=== PATIENT | male | born 1960 | race Caucasian/White ===

== ENCOUNTER → 2018-07-07 | Outpatient (CLI) | payer OTHER ==
[~2018-07-07] MED LIST: ASPI325 PO; METO100ER PO
[2018-07-08 13:56] LABS: Stool Occult Bld Immuno 1 Positive (NEGATIVE)
== END | disposition home or self-care (01) ==
LOC: LAB SHORT 13:16 → LAB EV 13:16
PROVIDERS: Internal Medicine
DX: Z12.11 Encounter for screening for malignant neoplasm of colon (principal); Z12.5 Encounter for screening for malignant neoplasm of prostate; Z13.89 Encounter for screening for other disorder; I10 Essential (primary) hypertension; R73.01 Impaired fasting glucose; M54.5 Low back pain
CPT/HCPCS: G0328

== ENCOUNTER 2018-10-30 07:33 | Day surgery (SDC) | payer OTHER ==
[~2018-10-30] VITALS: Ht 195.6 cm; Wt 142.0 kg
[2018-10-30] MEDS ORDERED: OMEG1CAP30 (08:11)
[2018-10-30] MEDS ORDERED: PROSTATE HEALT1 EACH (08:11)
[2018-10-30] MEDS ORDERED: LIVER COMPLEX1 EACH (08:11)
[2018-10-30] MEDS ORDERED: VITAMIN D35000 UNI1 (08:12)
[2018-10-30] MEDS ORDERED: GLUCOSAMINE CH1 EAC1 (08:12)
[2018-10-30] MEDS ORDERED: Multivitamin1 EAC1 (08:13)
== END 2018-10-30 09:53 | disposition home or self-care (01) ==
LOC: ORSCSDS 07:33
PROVIDERS: Internal Medicine Gastroenterology
PROC: 0DB68ZX Excision of Stomach, Via Natural or Artificial Opening Endoscopic, Diagnostic (ICD-10-PCS; principal; 2018-10-30 08:45)
PROC: 0DBL8ZX Excision of Transverse Colon, Via Natural or Artificial Opening Endoscopic, Diagnostic (ICD-10-PCS; principal; 2018-10-30 08:45)
PROC: 0DB58ZX Excision of Esophagus, Via Natural or Artificial Opening Endoscopic, Diagnostic (ICD-10-PCS; principal; 2018-10-30 08:45)
PROC: 0DBN8ZX Excision of Sigmoid Colon, Via Natural or Artificial Opening Endoscopic, Diagnostic (ICD-10-PCS; principal; 2018-10-30 08:45)
DX: R10.32 Left lower quadrant pain (principal); Z86.010 Personal history of colon polyps; K92.1 Melena; K20.9 Esophagitis, unspecified; K57.30 Diverticulosis of large intestine without perforation or abscess without bleeding; K29.70 Gastritis, unspecified, without bleeding; D12.3 Benign neoplasm of transverse colon; K63.5 Polyp of colon; I48.91 Unspecified atrial fibrillation; G47.33 Obstructive sleep apnea (adult) (pediatric); Z79.899 Other long term (current) drug therapy; Z79.82 Long term (current) use of aspirin; E66.01 Morbid (severe) obesity due to excess calories; Z68.37 Body mass index [BMI] 37.0-37.9, adult
CPT/HCPCS: 88305; 88342; J7120

== ENCOUNTER 2019-06-07 08:30 | Emergency (ER) | payer OTHER ==
[~2019-06-07] VITALS: Ht 182.9 cm; Wt 136.1 kg
[~2019-06-07 08:30] MED LIST changes: -ASPI325 PO; +ASPI81CH PO; +GLUCOSAMINE CH1 EAC1; +LIVER COMPLEX1 EACH; +Multivitamin1 EAC1; +OMEG1CAP30; +PROSTATE HEALT1 EACH; +VITAMIN D35000 UNI1
[2019-06-07 09:10] LABS: Source, Urine Clean Catch
[2019-06-07 09:30] LABS: Bilirubin, Urine Neg (Neg); Blood, Urine Neg (Neg); Glucose Qualitative, Urine Neg (Neg); Ketones, Urine Neg (Neg); Leukocyte Esterase, Urine Neg (Neg); Nitrite, Urine Neg (Neg); Protein, Urine Neg (Neg); Urobilinogen, Urine NORM (Normal)
[2019-06-07] MEDS ORDERED: SILDENAFIL20 MG PO (09:37)
[2019-06-07] MEDS ORDERED: OMEPRAZOLE MAGN20 M1 PO (09:39)
[2019-06-07 09:40] LABS: BASOPHILS ABSOLUTE AUTO 0.03 K/mm3 (0.00-0.23); BASOPHILS PERCENT AUTO 1 % (0-2); EOSINOPHILS PERCENT AUTO 2 % (0-6); Hematocrit 42.3 % (37.0-53.0); Hemoglobin 14.6 g/dL (13.5-17.5); IMMATURE GRAN ABSOLUTE AUTO 0.02 K/mm3 (0.00-0.10); IMMATURE GRAN PERCENT AUTO 0 % (0-1); LYMPHOCYTES ABSOLUTE AUTO 1.37 K/mm3 (0.84-5.20); LYMPHOCYTES PERCENT AUTO 25 % (21-46); MONOCYTES ABSOLUTE AUTO 0.61 K/mm3 (0.16-1.47); MONOCYTES PERCENT AUTO 11 % (4-13); Mean Corpuscular HGB 32.4 pg (26.0-34.0); Mean Corpuscular HGB Conc 34.5 g/dL (31.5-36.5); Mean Corpuscular Volume 94 fL (80-100); Mean Platelet Volume 9.1 fL (9.1-12.4); NEUTROPHILS ABSOLUTE AUTO 3.31 K/mm3 (1.96-9.15); NEUTROPHILS PERCENT AUTO 61 % (41-73); Platelet Count 138 K/mm3 (150-400); RDW Coefficient Variation 12.7 % (11.7-14.2); RDW Standard Deviation 43.8 fL (35.1-46.3); Red Blood Cell Count 4.51 M/mm3 (4.30-5.90); White Blood Cell Count 5.44 K/mm3 (4.00-11.30)
[2019-06-07 09:43] LABS: Appearance, Urine Clear (Clear); Color, Urine Yellow (P-Yellow)
[2019-06-07 09:56] LABS: Alanine Aminotransfer (ALT/SGP 41 U/L (12-78); Albumin, Blood 3.6 g/dL (3.4-5.0); Alk Phos 66 U/L (50-136); Anion Gap 10 mmol/L (6-16); Aspartate Aminotrans (AST/SGOT 22 U/L (12-37); Bilirubin, Total 1.1 mg/dL (0.1-1.0); Blood Urea Nitrogen 11 mg/dL (8-24); Bun/Creatinine Ratio 15.9 (12.0-20.0); CO2, Blood 23 mmol/L (21-32); Calcium, Blood 8.3 mg/dL (8.5-10.1); Chloride, Blood 107 mmol/L (98-108); Creatinine, Blood 0.69 mg/dL (0.60-1.20); Globulin, Blood 3.5 g/dL (2.2-4.0); Glomerular Filtration Rate >60 (60-); Glucose, Blood 109 mg/dL (70-99); Sodium, Blood 140 mmol/L (136-145); Total Protein, Blood 7.1 g/dL (6.4-8.2)
== END 2019-06-07 10:50 | disposition home or self-care (01) ==
LOC: ER 08:30
PROVIDERS: Emergency Medicine
DX: R10.9 Unspecified abdominal pain (principal); I48.91 Unspecified atrial fibrillation; Z79.82 Long term (current) use of aspirin; Z79.899 Other long term (current) drug therapy
CPT/HCPCS: 36415; 74176; 80053; 81003; 85025; 96374; 96375; 99284-25; J1885; J3010

== ENCOUNTER 2020-10-15 10:54 | Day surgery (SDC) | payer OTHER ==
[~2020-10-15] VITALS: Ht 195.6 cm; Wt 149.4 kg
[~2020-10-15 10:54] MED LIST changes: +Aspir 8181 MG PO; +FLAX PO; +LORA10ER PO; +OMEPRAZOLE MAGN20 M1 PO; +SILDENAFIL20 MG PO; +TURMERIC500 M2 PO
--- NOTE | 2020-10-15 12:05 | NUR ---
10/15/20 1205 Rebekah Chacko PATIENT NOTIFIED THAT THERE IS POSSIBLY DELAY DUE TO PRIOR CASE RUNNING LONGER. PATIENT VERBALIZES UNDERSTANDING. PATIENT STATES HE IS COMFORTABLE AND HAS NO NEEDS AT THIS TIME. CALL LIGHT WITHIN REACH
== END 2020-10-15 14:10 | disposition home or self-care (01) ==
LOC: ORSCSDS 10:54
PROVIDERS: Internal Medicine Gastroenterology
PROC: 0DBL8ZX Excision of Transverse Colon, Via Natural or Artificial Opening Endoscopic, Diagnostic (ICD-10-PCS; principal; 2020-10-15 12:15)
PROC: 0DB58ZX Excision of Esophagus, Via Natural or Artificial Opening Endoscopic, Diagnostic (ICD-10-PCS; principal; 2020-10-15 12:15)
PROC: 0DBP8ZX Excision of Rectum, Via Natural or Artificial Opening Endoscopic, Diagnostic (ICD-10-PCS; principal; 2020-10-15 12:15)
PROC: 0DBM8ZX Excision of Descending Colon, Via Natural or Artificial Opening Endoscopic, Diagnostic (ICD-10-PCS; principal; 2020-10-15 12:15)
DX: Z86.010 Personal history of colon polyps (principal); K21.9 Gastro-esophageal reflux disease without esophagitis; K20.90 Esophagitis, unspecified without bleeding; K22.70 Barrett's esophagus without dysplasia; K57.30 Diverticulosis of large intestine without perforation or abscess without bleeding; K64.8 Other hemorrhoids; I10 Essential (primary) hypertension; I48.91 Unspecified atrial fibrillation; F17.220 Nicotine dependence, chewing tobacco, uncomplicated; G47.33 Obstructive sleep apnea (adult) (pediatric); Z79.899 Other long term (current) drug therapy; E66.01 Morbid (severe) obesity due to excess calories; Z68.39 Body mass index [BMI] 39.0-39.9, adult
CPT/HCPCS: 88305; J2250; J2704; J3010; J7120